=== PATIENT | male | born 1955 | race Caucasian/White ===

== ENCOUNTER 2022-08-22 11:53 | Outpatient (CLI) | payer OTHER, SELFPAY ==
[2022-08-22 12:59] LABS: Basophils Absolute Auto 0.1 K/mm3 (0.0-0.1); Basophils Percent Auto 0.8 % (0.2-1.2); Eosinophils Absolute Auto 0.3 K/mm3 (0-0.3); Eosinophils Percent Auto 4.5 % (0-4.4); Hematocrit 46.6 % (42.0-52.0); Hemoglobin 15.6 g/dL (14.0-18.0); Lymphocytes Absolute Auto 4.52 K/mm3 (0.9-3.2); Lymphocytes Percent Auto 60.4 % (18.3-44.2); Mean Corpuscular HGB Conc 33.5 g/dl (32-36); Mean Corpuscular Hemoglobin 34.5 pg (26-34); Mean Corpuscular Volume 103.1 fl (80-100); Mean Platelet Volume 10.7 fl (7.4-10.4); Monocytes Absolute Auto 0.8 K/mm3 (0.1-0.6); Monocytes Percent Auto 10.8 % (2.6-8.5); Neutrophils Absolute Auto 1.8 K/mm3 (1.3-6.7); Neutrophils Percent Auto 23.5 % (45.5-73.1); Platelet Count Result 246 k/mm3 (150-375); Red Blood Count 4.52 M/mm3 (4.6-6.20); Red Cell Distribution Width 12.7 % (11.5-14.5); White Blood Count 7.5 K/mm3 (4.5-10.0)
[2022-08-22 13:11] LABS: INR 1.2; Partial Thromboplastin Time 30.8 SECONDS (22.3-36.8); Prothrombin Time 14.4 Seconds (11.1-14.7)
[2022-08-22 13:15] LABS: Albumin Level 4.2 g/dL (3.5-5.1); Anion Gap 12 mmol/L (8-16); Blood Urea Nitrogen 14 mg/dL (9-20); Calcium 9.3 mg/dL (8.4-10.2); Carbon Dioxide 29 mmol/L (22-30); Chloride 100 mmol/L (98-107); Estimated Glomerular Filt Rate > 60; Glucose 99 mg/dL (65-110); Potassium 3.9 mmol/L (3.4-5.0); Sodium 141 mmol/L (137-145)
[2022-08-22 13:25] LABS: Urine Cotinine NEGATIVE
[2022-08-22 13:33] LABS: Hemoglobin A1C 6.2 % (<5.7)
[2022-08-22 13:37] LABS: Appearance Urine Clear (Clear); Bilirubin Urine Negative (Negative); Blood Urine Negative (Negative); Color Urine Yellow (Yellow); Glucose Urine UA Negative (Negative); Ketones Urine Negative (Negative); Leukocyte Esterase Ur Negative LEU/UL (Negative); Nitrate Urine Negative (Negative); Protein Urine Negative (Negative); Specific Grav Ur 1.015 (1.001-1.035); Urobilinogen Urine 0.2 mg/dL (<2.0)
[2022-08-22 13:42] LABS: Add Urine Microscopic? NO
== END 2022-08-22 11:54 | disposition home or self-care (01) ==
LOC: ANHSURGERY 12:01
PROVIDERS: PCP Physician Assistant Medical; Visit Provider Orthopaedic Surgery
DX: M17.11 Unilateral primary osteoarthritis, right knee (principal); Z01.818 Encounter for other preprocedural examination
CPT/HCPCS: 80048; 80307; 81003; 82040; 83036; 85025; 85610; 85730; 86850; 86900; 86901; 87081

== ENCOUNTER 2022-09-03 00:26 | Day surgery (SDC) | payer OTHER, SELFPAY ==
--- NOTE | 2022-08-22 11:41 | PC.NURSE ---
PRE-OP INSTRUCTIONS, PLEASE READ CAREFULLY Report to the Outpatient Waiting Room, entrance under the green pavilion located off [facility], at time _0900_ on date _09/03/22_. OR Time: _1100_. PACK A SMALL OVERNIGHT BAG AND LEAVE IN THE CAR ALONG WITH YOUR WALKER Time changes happen often and if your time is changed the preop area will call you the afternoon before. - You and your visitor will be asked to self-screen and do not enter if you have any COVID symptoms. - We encourage only one visitor and NO visitors under age 16 are allowed at this time. Your visitor will receive communication by the phone number that is given day of service. - The patient visitor is requested to social distance or may leave the building when not with patient due to restrictions. - A mask is required within the hospital. - VISITING HOURS 8AM-8PM Patients may have clear liquids (water, carbonated beverages, clear teas, apple juice) until 3 hours prior to surgery (0800 AM) with a maximum of 20 ounces. - No food from midnight until time of surgery Take the following medications with a SIP of water the morning of surgery: _METOPROLOL_ Medications to discontinue _ASPIRIN PER DR. SHORE'S INSTRUCTIONS_ Medications to discontinue per ANESTHESIA - _MULTIVITAMIN Date to take last dose 08/30/22__ Please no make-up, nail bengali, hairspray, perfume, deodorant, or body powder the day of surgery. No jewelry (including any body piercings) or valuables the day of surgery, leave them at home. Please take a shower or bath the night before, or the morning of, surgery with an antibacterial soap. Wear comfortable, loose fitting clothing. - Jewelry must be removed prior to entering the operating room. Rings and piercings that are not removed may be cut off. - The hospital will not accept responsibility for valuables. - Please leave all valuables, including medications, at home the day of surgery. If you are going home after surgery, a licensed spike driver must drive you home. - NO public transportation without another adult. - We recommend that an adult stay with you for 24 hours following discharge. - We also recommend that you do not drive, make important decision, drink alcoholic beverages, or take any drugs that were not prescribed by your health care provider for at least 24 hours after your discharge time. Follow any additional instructions given to you from your surgeon. If you or anyone in your household have experienced Covid symptoms in the past week, please notify your surgeon or the nurse liaison at the phone number below for possible testing. Instructions given to _PT_and asked if any additional questions and then verbalized understanding. Patient advised to call surgeon office or pre surgery nurse liaison [phone] if any additional questions.
[2022-08-22 12:18] VITALS: BP 150/86; PULSE 52; RESP 20; TEMP 36.5; O2SAT 99; BMI 38.4
[2022-09-03] VITALS (13 sets, daily range): BP systolic 108–175; BP diastolic 62–94; PULSE 51–87; RESP 16–22; TEMP 36.3–36.8; O2SAT 92–100
--- NOTE | ~2022-09-03 | XR_ITS ---
EXAMINATION: XR knee RT 2V DATE: 09/03/2022 14:55 INDICATION: Postoperative evaluation following right total knee arthroplasty. TECHNIQUE: Anteroposterior and lateral views of the right knee were obtained. COMPARISON: None. FINDINGS: Right total knee arthroplasty without patellar resurfacing appears well seated and in near anatomic a lignment. No fractures identified. Skin madan and expected postoperative subcutaneous, intramedul mark and intra-articular gas. IMPRESSION: 1. Right total knee arthroplasty, negative for postoperative purposes. Reviewed, dictated and finalized at location A.
--- NOTE | 2022-09-03 07:21 | ECG_ITS ---
Measurements Intervals [place] Rate: 53 P: 7 AR: 205 QRS: -35 QRSD: 107 T: 66 QT: 416 QTc: 392 Interpretive Statements SINUS BRADYCARDIA MARKED LEFT AXIS DEVIATION [QRS AXIS < -30] LEFT VENTRICULAR HYPERTROPHY AND ST-T CHANGE [VOLTAGE CRITERIA PLUS ST/T ABNORMALITY] ABNORMAL ECG NO PREVIOUS ECG AVAILABLE FOR COMPARISON Electronically Signed On 09-03-2022 10:22:46 CDT by Tadeo Boone M.D.
--- NOTE | 2022-09-03 07:26 | WPDHPUPDATE1 ---
History and Physical Update Update Date/Time: 09/03/22 07:26 History and Physical has been reviewed, including an updated exam of the patient. There are NO changes in the patient's condition. Risks, benefits, and alternatives have been discussed and questions answered. Patient agrees to proceed with procedure.
--- NOTE | 2022-09-03 07:27 | WPDHPUPDATE1 ---
History and Physical Update Update Date/Time: 09/03/22 07:27 History and Physical has been reviewed, including an updated exam of the patient. There are NO changes in the patient's condition. Risks, benefits, and alternatives have been discussed and questions answered. Patient agrees to proceed with procedure.
--- NOTE | 2022-09-03 08:01 | P.PNAN_ITS ---
Anes - Initial Pre Proc Eval Procedure: Operation Date: 09/03/22 11:00 Proposed Procedures p Right Total Knee Arthroplasty - Hossein Rangel MD Date/Time: 09/03/22 08:01 Surgeon: Hossein Rangel MD Pre Op Diagnosis: right knee djd Patient Data Age: 66 Gender: M Height: 1.83 m Weight: 128.4 kg Last Vital Signs Temp 36.5 C 08/22/22 12:18 Pulse 52 L 08/22/22 12:18 Resp 20 08/22/22 12:18 BP 150/86 H 08/22/22 12:18 Pulse Ox 99 08/22/22 12:18 O2 Del Method Room Air 08/22/22 12:18 Allergies Allergy/AdvReac Type Severity Reaction Status Date / Time No Known Allergies Allergy Mild Verified 09/03/22 09:14 Home Medications Medication Instructions Recorded Confirmed Type aspirin 81 mg capsule 81 mg PO DAILY 08/04/22 09/03/22 History mecobalamin (vitamin B12) [B12 1,000 mg PO QAM 08/05/22 09/03/22 History Active] multivitamin 1 tablet PO DAILY 08/05/22 09/03/22 History pantoprazole 40 mg tablet,delayed 40 mg PO QAM 08/21/22 09/03/22 History release potassium citrate 90 mg PO DAILY 08/21/22 09/03/22 History simvastatin 80 mg tablet 80 mg HS 08/22/22 09/03/22 History metoprolol tartrate 50 mg tablet 50 mg PO BID #180 tabs 08/26/22 09/03/22 Rx Patient hx anesthesia problems: none Family hx anesthesia problems: none Results Review: All pre-operative results and documents have been reviewed as part of the pre- operative evaluation. [facility] Past Medical History Medical History (Updated 09/03/22 @ 08:03 by Yared Haile DO) Atrial fibrillation CAD (coronary artery disease) History of ulcer disease Hyperlipidemia Hypertension Surgical History Surgical History (Updated 09/03/22 @ 08:03 by Yared Haile DO) History of carotid endarterectomy left History of open heart surgery Hx of CABG x3, 2010 Social History Social History (Updated 08/21/22 @ 10:43 by Marina Clark MA) Smoking packs per day: 1 Smoking cigarettes per day: 20.0 Years smoked: 30 Smoking pack-years: 30.00 Smoking status: Former smoker Tobacco type: cigarettes Second hand tobacco smoke exposure: No Additional smoking assessment comments: QUIT 2010 - PT DENIES ALL FORMS OF TOBACCO USE Alcohol intake: current Drinks per week: 6 Substance use: never Substance use type: marijuana Other substance usage details: QUIT AGE 34 Living arrangements: with family Gender identity (if verbalized by the patient): Male Spiritual care concerns: No Anes - Eval Final PreProcedure Day of Procedure 09/03/22 08:01 Patient weight: obese Heart: regular rate and rhythm Lungs: clear to auscultation Airway: Mallampati scale class 1 Neurological: alert and oriented Last oral intake: >/= 8 hours ASA classification: III Emergent: no Anesthetic plan: proceed Anesthesia type and monitoring: general LMA and standard monitoring Results Review: All pre-operative results and documents have been reviewed as part of the pre- operative evaluation. Informed Consent: The patient's anesthetic plan and its attendant risks and benefits were discussed with the patient/family/POA. Questions were solicited and answers provided to the satisfaction of the niles
--- NOTE | 2022-09-03 08:03 | WPDANESPNB ---
Anes - Peripheral Nerve Block Date/Time: 09/03/22 08:03 I have discussed with the patient/family/POA the placement of a peripheral nerve block for post-operative pain management, including associated risks, benefits, complications, and side effects. Alternative methods of post-operative analgesia were detailed. Questions were solicited and answers provided to the satisfaction of the patient/family/POA. Time-Out: A pre-procedural Time-Out was completed immediately before starting the procedure and confirmed: Patient Identification, Site, Procedure, Patient Position and the Availability of Requisite Equipment. Clinical Indications: Acute post-operative pain management requested by the operative surgeon. Nerve Block Insertion Note Anes-nerve block: adductor canal right Patient position: supine Skin prep: chlorhexidine Needle: 22 gauge, stimulating, insulated echogenic needle. Needle length: 80 mm Technique: ultrasound Injectate: bupivacaine 0.5% with epi 5 mcg/ml (30cc - no epi) Observations: tolerated well Complications: none Procedure start time:: 1118 Procedure end time:: 112
[2022-09-03] MEDS: LACTATED RINGERS 1,000 ML 30 ML IV CONT ×2 (09:45→14:38)
[2022-09-03] MEDS: ACETAMINOPHEN 500 MG TABLET 1000 MG PO (09:45)
[2022-09-03] MEDS: TRANEXAMIC ACID 1,000MG/ISO100 1,000 MG/100 ML BAG 200 MG IVPB (11:00)
[2022-09-03] MEDS: ceFAZolin 3 GM/D5W 100 ML 100 ML IVPB (11:34)
[2022-09-03] MEDS: TRANEXAMIC ACID 1,000 MG/10 ML AMPUL 1000 MG IV PUSH (13:47)
[2022-09-03] MEDS: fentaNYL CITRATE INJ (*CRX) 100 MCG/2 ML VIAL 25 MCG IV PUSH ×8 (14:55→16:00)
--- NOTE | 2022-09-03 15:14 | W.PM.PROC2 ---
Procedure Note - Detailed Date of Procedure 09/03/22 Pre-op Diagnosis right knee djd Post-op Diagnosis Same Procedure Performed R TKA Surgeon Hossein Rangel MD Anesthesia General Description of Procedure THE RIGHT KNEE WAS PREPPED AND DRAPED IN THE STERILE FASHION. THERE WAS A 10 DEGREE FLEXION CONTRACTURE. A MIDLINE SKIN INCISION WAS MADE. A MEDIAL PARAPATELLAR ARTHROTOMY WAS MADE. THE PATELLA WAS EVERTED. THERE WAS TRICOMPARTMENT DJD. THERE WAS MINIMAL PATELLA DJD. AN INTRAMEDULLARY KAMILLE WAS PLACED IN THE FEMUR. A DISTAL FEMORAL CUT WAS MADE IN 5 DEGREES OF VALGUS REMOVING APPROXIMATELY 10 MM OF BONE FROM THE DISTAL FEMUR. THE FEMUR WAS SIZED TO 70. A 70 FEMORAL CUTTING BLOCK WAS PLACED IN 3 DEGREES OF EXTERNAL ROTATION AND IN ALIGNMENT WITH SEVERIANO'S LINE AND THE TRANSEPICONDYLAR AXIS. ANTERIOR POSTERIOR AND CHAMFER CUTS WERE MADE. THE CUTS WERE EXCELLENT. NEXT AN INTRAMEDULLARY CUTTING GUIDE WAS PLACED IN THE TIBIA. A TRANS TIBIAL CUT WAS MADE ALONG THE LONG AXIS OF THE TIBIA. APPROXIMATELY 10 MM OF BONE WAS REMOVED FROM THE HIGH SIDE OF THE TIBIA. THE TIBIA WAS THEN PLANED TO A SMOOTH SURFACE. POSTERIOR FEMORAL OSTEOPHYTES WERE REMOVED FROM THE FEMORAL CONDYLES. A 79 TIBIAL TRIAL WAS PLACED IN ALIGNMENT WITH THE 1/3 MEDIAL ASPECT OF THE TIBIAL TUBERCLE. THEN A 70 FEMORAL TRIAL COMPONENT WAS PLACED. BOTH HAD EXCELLENT FITS. EVENTUALLY A 14 MM POLYETHYLENE TRIAL COMPONENT WAS PLACED. THE KNEE WAS TAKEN THROUGH A RANGE OF MOTION. THE KNEE CAME OUT TO FULL EXTENSION. THERE WAS NO ABNORMAL TILT TO THE PATELLA. THERE WAS GOOD A/P AND VARUS/VALGUS STABILITY. THERE WAS NO EXCESSIVE ROLL BACK WITH FLEXION. THE TRIAL COMPONENTS WERE REMOVED. THEN A 70 FEMORAL COMPONENT AND 79 TIBIAL COMPONENT WITH A 14 POLYETHYLENE COMPONENT WERE CEMENTED INTO PLACE. ONCE THE CEMENT WAS HARD THE KNEE WAS TAKEN THROUGH A ROM AGAIN AND FOUND TO BE STABLE WITH NO PATELLA TILT NO EXCESSIVE ROLL BACK WITH FLEXION AND GOOD STABILITY WITH COMPLETE AND FULL EXTENSION. THE KNEE WAS IRRIGATED WITH STERILE BETADINE AND WATER FOR ABOUT 3 MINUTES. THE BLEEDERS WERE CAUTERIZED. THE ARTHROTOMY WAS REPAIRED WITH NUMBER 1 VICRYL. THE SUB CUTANEOUS LAYER WITH 2-0 VICRYL AND THE SKIN WITH DIAMOND. THE WOUND WAS WASHED AND A STERILE DRESSING WAS APPLIED. PATIENT WAS EXTUBATED. Estimated Blood Loss -300.0 Pathology None sent Complications No immediate complications Condition Stable Disposition PACU
--- NOTE | 2022-09-03 16:20 | ADMGEN ---
This patient, Irving Garcia, was admitted to Medical Room 343-01. Patient/family oriented to hospital policies and general routines including ID bracelet, bed and alarms, visiting hours, pain management, procedures, bathroom and other care routines, personal items, smoking policy, room service/diet, and visiting hours. Information on how to activate the Rapid Response Team has been discussed. Patient/Family are encouraged to report perceived risks to care and to ask questions if they do not understand what they are told or what they should do.
[2022-09-03] MEDS: SODIUM CHLORIDE 0.9% IV 1,000 ML 125 ML IV CONT (16:56)
[2022-09-03] MEDS: SENNA/DOCUSATE SODIUM TABLET 2 TAB PO (17:34)
[2022-09-03] MEDS: KETOROLAC 15 MG/ML VIAL (*BKC) IV PUSH ×2 (17:35→23:37)
[2022-09-03] MEDS: ceFAZolin 2 GM/D5W 50 ML 2 GM/50 ML BAG IVPB (18:11)
[2022-09-03] MEDS: oxyCODONE/ACETAMINOPHEN (*CRX) 5-325 MG TABLET 2 TABLET PO (19:58)
[2022-09-03] MEDS: SIMVASTATIN 20 MG TABLET 80 MG BY MOUTH (19:59)
[2022-09-03] MEDS: ASPIRIN 325 MG ENTERIC TABLET PO (20:00)
[2022-09-03] MEDS: METOPROLOL TARTRATE 50 MG TAB PO (20:00)
[2022-09-04 01:51] VITALS: BP 145/66; PULSE 61; RESP 16; TEMP 36.7; O2SAT 96
[2022-09-04] MEDS: ceFAZolin 2 GM/D5W 50 ML 2 GM/50 ML BAG IVPB ×2 (03:05→10:21)
[2022-09-04] MEDS: KETOROLAC 15 MG/ML VIAL (*BKC) IV PUSH (05:28)
[2022-09-04 05:45] VITALS: BP 141/71; PULSE 60; RESP 16; TEMP 36.7; O2SAT 97
[2022-09-04 05:48] LABS: Basophils Percent Auto 0.2 % (0.2-1.2); Hematocrit 40.2 % (42.0-52.0); Hemoglobin 13.6 g/dL (14.0-18.0); Immature Granulocyte Absolute 0.05 K/mm3 (0.00-0.031); Immature Granulocyte Percent A 0.3 % (0-0.5); Lymphocytes Absolute Auto 3.12 K/mm3 (0.9-3.2); Lymphocytes Percent Auto 20.1 % (18.3-44.2); Mean Corpuscular HGB Conc 33.8 g/dl (32-36); Mean Corpuscular Volume 100.5 fl (80-100); Monocytes Absolute Auto 1.4 K/mm3 (0.1-0.6); Neutrophils Absolute Auto 10.9 K/mm3 (1.3-6.7); Neutrophils Percent Auto 70.4 % (45.5-73.1); Platelet Count Result 217 k/mm3 (150-375); Red Cell Distribution Width 12.6 % (11.5-14.5); White Blood Count 15.5 K/mm3 (4.5-10.0)
[2022-09-04 06:03] LABS: Anion Gap 11 mmol/L (8-16); Blood Urea Nitrogen 21 mg/dL (9-20); Calcium 8.5 mg/dL (8.4-10.2); Carbon Dioxide 24 mmol/L (22-30); Chloride 105 mmol/L (98-107); Estimated CRCL calculation 96 ml/min; Estimated Glomerular Filt Rate > 60; Glucose 125 mg/dL (65-110); Potassium 4.1 mmol/L (3.4-5.0); Sodium 140 mmol/L (137-145)
--- NOTE | 2022-09-04 07:55 | P.PNAN_ITS ---
Anes - Prog Note Post-Op Date/Time: 09/04/22 07:55 Cardiovascular status: normal Respiratory status: normal Airway patency: baseline Mental status: baseline Post-Op hydration status: normal Vital Signs: Last Vital Signs Temp 36.7 C 09/04/22 05:45 Pulse 60 09/04/22 05:45 Resp 16 09/04/22 05:45 BP 141/71 H 09/04/22 05:45 Pulse Ox 97 09/04/22 05:45 O2 Del Method Room Air 09/03/22 20:00 O2 Flow Rate 2 09/03/22 15:55 Pain Score (VAS): 3 I/O: Intake & Output 09/03/22 09/03/22 09/04/22 15:59 23:59 07:59 Intake Total 0 350 50 Output Total 0 Balance 0 350 50 Laboratory Tests 09/04/22 05:30 09/04/22 05:30 09/04/22 09/04/22 05:30 05:30 WBC 15.5 H RBC 4.00 L Hgb 13.6 L Hct 40.2 L MCV 100.5 H MCH 34.0 MCHC 33.8 RDW 12.6 Plt Count 217 MPV 11.0 H Immature Gran % (Auto) 0.3 Neut % (Auto) 70.4 Lymph % (Auto) 20.1 [place] % (Auto) 9.0 H Eos % (Auto) 0.0 Baso % (Auto) 0.2 Lymph # (Auto) 3.12 [place] # (Auto) 1.4 H Eos # (Auto) 0.0 Baso # (Auto) 0.0 Abs Immat Gran (auto) 0.05 H Absolute Neuts (auto) 10.9 H Absolute Nucleated RBC 0.0 Nucleated RBC % 0.0 Sodium 140 Potassium 4.1 Chloride 105 Carbon Dioxide 24 Anion Gap 11 BUN 21 H Creatinine 0.90 Estim Creat Clear Calc 96 Estimated GFR > 60 Glucose 125 H Calcium 8.5 Post-procedural complaints: none Patient Feedback: Patient satisfied with anesthetic care.
[2022-09-04] MEDS: oxyCODONE/ACETAMINOPHEN (*CRX) 5-325 MG TABLET 2 TABLET PO (07:56)
[2022-09-04] MEDS: ASPIRIN 325 MG ENTERIC TABLET PO (08:36)
[2022-09-04] MEDS: CYANOCOBALAMIN 1,000 MCG TABLET 1000 MCG PO (08:36)
[2022-09-04 08:37] VITALS: PULSE 70
[2022-09-04] MEDS: MULTIVITAMINS THERAPEUTIC TAB (*BKC) 1 TABLET PO (08:37)
[2022-09-04] MEDS: PANTOPRAZOLE 40 MG TABLET PO (08:37)
[2022-09-04] MEDS: METOPROLOL TARTRATE 50 MG TAB PO (08:37)
--- NOTE | 2022-09-04 09:31 | PM.PNORT ---
Progress Note: A&P Assessment and Plan (1) S/P total knee arthroplasty: Qualifiers: Laterality: right Qualified Code(s): Z96.651 - Presence of right artificial knee joint Code(s): Z96.659 - Presence of unspecified artificial knee joint Status: Acute Assessment and Plan: POD #1 : Right TKA Continue PT/OT. WBAT. Walker. HIGH FALL RISK. Continue pain control. Ice Knee. Protect skin. DVT prophylaxis with Aspirin. SCDs. Incentive Spirometry Use reviewed. Monitor Dressing. Change prior to discharge. Bowel Regimen. Dispo: Home with Home Health pending progress with PT/OT, likely today. Subjective Subjective Date/Time Seen: 09/04/22 09:31 Post Op day: 1 (Right Knee DJD ) Interval history: POD #1: Right TKA Patient doing very well. Pain well controlled. No new concerns. Hopeful for discharge home today. Review of Systems Review of Systems: All systems reviewed & are unremarkable except as noted in HPI and below Constitutional: Constitutional: Denies fever(s) and Denies headache(s) ENT: Denies headache(s) Cardiovascular: Cardiovascular: Denies chest pain, Denies diaphoresis, Denies palpitations and Denies dyspnea Respiratory: Respiratory: Denies dyspnea Gastrointestinal: Gastrointestinal: Denies abdominal pain, Denies constipation, Denies nausea and Denies vomiting Genitourinary: Genitourinary: Denies dysuria and Reports nocturia Musculoskeletal: Musculoskeletal: Reports arthralgias (Right Knee ) and Reports joint swelling (Right Knee ) Neurologic: Denies headache(s) Endocrine: Endocrine: Denies palpitations Exam Const: General: comfortable and no acute distress Resp: Effort & Inspection: normal respiratory effort Cardio: Rate: regular rate Rhythm: regular rhythm GI: GI Palp: Yes Soft to palpation, No Tenderness to palpation present (GI) and No Guarding due to palpation present (GI) Skin: General skin exam: wounds noted Wounds: wounds noted Other: Incision c/d/i. No surrounding redness/warmth. No hematoma. Mild ecchymosis. No wound dehiscence Neuro: Cognition (Neuro): normal cognition Other: NV intact aside from block. Moves toes. Sensation intact to light touch. +ankle dorsiflexion/plantarflexion. Extrem: Right lower extremity: normal to inspection, knee Details: tenderness (diffuse, mild ) Location: of the patella, swelling (diffuse, consistent with surgical intervention ), abnormal ROM Details: pain with active ROM during, pain with passive ROM during and with range as follows (limited due to recent surgical intervention ); able to extend lower leg actively and ecchymosis (mild ), lower leg (Negative Phillip's Sign ) Details: normal to inspection; no erythema and no tenderness, ankle (+ankle dorsiflexion/plantarflexion ) Details: normal to inspection, no edema and normal ROM; no tenderness, no swelling and no ecchymosis and foot Details: normal capillary refill, normal to inspection, vascular exam Details: dorsalis pedis pulse present and motor-sensory exam Details: light-touch normal; no tenderness Left lower extremity: normal to inspection Psych: Mental Status: mental status grossly normal Objective Data Vital Signs Vital Signs: Vital Signs - 24 hr 09/03/22 11:14 09/03/22 14:38 09/03/22 14:55 Temperature 36.3 C L 36.8 C Pulse Rate 51 L 68 69 Respiratory Rate 16 22 H Blood Pressure 170/94 H 108/62 127/72 Pulse Oximetry 100 92 94 Oxygen Delivery Room Air Simple Face Mask Simple Face Mask Oxygen Flow Rate 6 6 09/03/22 15:10 09/03/22 15:15 09/03/22 15:25 Temperature Pulse Rate 75 78 Respiratory Rate 20 18 Blood Pressure 143/77 H 145/79 H Pulse Oximetry 96 93 Oxygen Delivery Simple Face Mask Nasal Cannula Nasal Cannula Oxygen Flow Rate 6 2 2 09/03/22 15:40 09/03/22 15:55 09/03/22 16:20 Temperature 36.7 C Pulse Rate 80 81 82 Respiratory Rate 16 16 16 Blood Pressure 129/82 143/85 H 158/87 H Pulse Oximetry 93 93 97 Oxygen
--- NOTE | 2022-09-04 11:32 | PM.DS ---
DS: Admitting Diagnosis Discharge Date 09/04/22 Admitting Diagnosis Right TKA DS: Discharge Diagnosis Discharge Diagnosis (1) S/P total knee arthroplasty: Qualifiers: Laterality: right Qualified Code(s): Z96.651 - Presence of right artificial knee joint Code(s): Z96.659 - Presence of unspecified artificial knee joint Status: Acute Assessment and Plan: POD #1 : Right TKA Continue PT/OT. WBAT. Walker. HIGH FALL RISK. Continue pain control. Ice Knee. Protect skin. DVT prophylaxis with Aspirin. SCDs. Incentive Spirometry Use reviewed. Monitor Dressing. Change prior to discharge. Bowel Regimen. Dispo: Home with Home Health pending progress with PT/OT, likely today. DS: Summary Hospital Course Reason for hospitalization: Right TKA Hospital Course: 66 year old male admitted s/p Right TKA for postoperative medical management, paint control and mobilization with PT/OT. Patient progressed well with PT/OT. Pain and vitals stable throughout. Patient has been cleared to be discharged home with home health at this time. Follow up planned for 3 weeks in the outpatient orthopedic clinic with Dr. Rangel. Status at Discharge Functional status at discharge: uses cane/walker Overall status at discharge: patient is progressing back to baseline Time Spent with Patient Time attestation: Total time spent providing and/or coordinating discharge services: Exam Const: General: comfortable and no acute distress Resp: Effort & Inspection: normal respiratory effort Cardio: Rate: regular rate Rhythm: regular rhythm Skin: General skin exam: wounds noted Wounds: wounds noted Other: Incision c/d/i. No surrounding redness/warmth. No hematoma. Mild ecchymosis. No wound dehiscence Neuro: Cognition (Neuro): normal cognition Other: NV intact aside from block. Moves toes. Sensation intact to light touch. +ankle dorsiflexion/plantarflexion. Extrem: Right lower extremity: normal to inspection, knee Details: tenderness (diffuse, mild ) Location: of the patella, swelling (diffuse, consistent with surgical intervention ), abnormal ROM Details: pain with active ROM during, pain with passive ROM during and with range as follows (limited due to recent surgical intervention ); able to extend lower leg actively and ecchymosis (mild ), lower leg (Negative Phillip's Sign ) Details: normal to inspection; no erythema and no tenderness, ankle (+ankle dorsiflexion/plantarflexion ) Details: normal to inspection, no edema and normal ROM; no tenderness, no swelling and no ecchymosis and foot Details: normal capillary refill, normal to inspection, vascular exam Details: dorsalis pedis pulse present and motor-sensory exam Details: light-touch normal; no tenderness Left lower extremity: normal to inspection Psych: Mental Status: mental status grossly normal DS: Data Data Completed and Pending Labs on day of discharge: Labs from last 24 hours 09/04/22 09/04/22 05:30 05:30 WBC 15.5 H RBC 4.00 L Hgb 13.6 L Hct 40.2 L MCV 100.5 H MCH 34.0 MCHC 33.8 RDW 12.6 Plt Count 217 MPV 11.0 H Immature Gran % (Auto) 0.3 Neut % (Auto) 70.4 Lymph % (Auto) 20.1 [place] % (Auto) 9.0 H Eos % (Auto) 0.0 Baso % (Auto) 0.2 Lymph # (Auto) 3.12 [place] # (Auto) 1.4 H Eos # (Auto) 0.0 Baso # (Auto) 0.0 Abs Immat Gran (auto) 0.05 H Absolute Neuts (auto) 10.9 H Absolute Nucleated RBC 0.0 Nucleated RBC % 0.0 Sodium 140 Potassium 4.1 Chloride 105 Carbon Dioxide 24 Anion Gap 11 BUN 21 H Creatinine 0.90 Estim Creat Clear Calc 96 Estimated GFR > 60 Glucose 125 H Calcium 8.5 Discharge Plan Discharge Patient Disposition: Home Health Service Discharge Instructions: Post Op Total Knee Replacement Instructions Dr. Hossein Rangel [phone] Your dressing will be changed prior to your discharge. You will be sent home with one additional dressing to be changed on
== END 2022-09-04 12:40 | disposition home health service (06) ==
LOC: ANHSURGERY 08:47 → ANH3MED 16:09
PROVIDERS: PCP Physician Assistant Medical; Visit Provider Orthopaedic Surgery
PROC: (CPT 27447; principal; 2022-09-03 11:00)
DX: M17.11 Unilateral primary osteoarthritis, right knee (principal); G89.18 Other acute postprocedural pain; I48.91 Unspecified atrial fibrillation; I25.10 Atherosclerotic heart disease of native coronary artery without angina pectoris; I10 Essential (primary) hypertension; E78.5 Hyperlipidemia, unspecified; Z79.82 Long term (current) use of aspirin; Z95.1 Presence of aortocoronary bypass graft; Z87.891 Personal history of nicotine dependence; E66.9 Obesity, unspecified; Z68.37 Body mass index [BMI] 37.0-37.9, adult
CPT/HCPCS: 27447; 64447; 36415; 73560; 80048; 80307; 81003; 82040; 83036; 85025; 85610; 85730; 86850; 86900; 86901; 87081; 93005; 97110; 97161; 97165; A9270; C1713; C1776; J0171; J0690; J1100; J1885; J2250; J2270; J2405; J2704; J2795; J3010; J7030; J7120

== ENCOUNTER 2022-10-22 11:00 | Outpatient (RCR) | payer OTHER, SELFPAY ==
--- NOTE | 2022-10-02 16:45 | PTOPEVAL1 ---
Assessment and note entered by Ronit Jara, PT Evaluation Information Assessment Status Evaluation Diagnosis R TKA Onset 09/04/22 Subjective Information Pt reports that he recently started using the cane over this past week and he feels like he really needs it when standing up but as he is walking doesn't need it as much. He reports that his knee feels really sore when he first gets up in the morning or when getting up at night to go to the bathroom. He states that he feels like his progressed has leveled out over the last week. He reports that he still does not have feeling on the lateral aspect of his L R knee. He reports that he has sharp shooting pains at times but nothing that lasts. He also reports stiffness and soreness in his knee. Reported Pain Level Pain Score 3: Self Report Assessment PT Clinical Summary Irving was seen today for a PT evaluation s/p R TKA. He presents with decreased LE strength and ROM limiting his functional mobility. He currently uses a straight cane for ambulation and requires increased time to perform sit to stand transfer. He would benefit from skilled PT to address these deficits and assist him in improving his functional mobility and returning to his prior level of function. Plan of Care Interventions Electrical Stimulation,Gait Training,Manual Therapy,Neuro Re-education,Patient/Caregiver Educati,Therapeutic Activities,Therapeutic Exercise PT Services Indicated Yes Treatment Frequency and 2x/week for 4-6 weeks Duration These treatments will address the objective and functional deficits as defined above. The patient will be advanced safely and appropriately in order for the patient to progress towards his/her prior level of function. Additional exercises will be introduced and as well as a comprehensive home exercise program upon discharge, if needed, ?to ensure carryover of functional gains achieved in the clinic. This treatment plan has been reviewed and agreement upon by the patient.
--- NOTE | 2022-10-27 16:26 | PCPTNOTE ---
Patient called & cancelled scheduled appointment this date due to feeling ill.
--- NOTE | 2022-11-07 08:16 | PCPTNOTE ---
Patient called & cancelled scheduled appointment this date due to inclement weather
--- NOTE | 2022-11-13 11:03 | BUPTOPDC ---
Assessment and note entered by Sharri Coleman, PT Assessment Status Discharge - Pt Not Present Diagnosis R TKA Onset 09/04/22 Subjective Information Pt reports that he recently started using the cane over this past week and he feels like he really needs it when standing up but as he is walking doesn't need it as much. He reports that his knee feels really sore when he first gets up in the morning or when getting up at night to go to the bathroom. He states that he feels like his progressed has leveled out over the last week. He reports that he still does not have feeling on the lateral aspect of his L R knee. He reports that he has sharp shooting pains at times but nothing that lasts. He also reports stiffness and soreness in his knee. Assessment PT Clinical Summary Pt called and stated he is doing well. Reports due to insurance changes will not be continuing therapy at this time. Thus is being discharged from therapy services due to patient request. Plan of Care PT Services Indicated Discharge
== END 2022-11-13 11:37 | disposition home or self-care (01) ==
LOC: ANHHIPT 11:00
PROVIDERS: PCP Physician Assistant Medical; Visit Provider Orthopaedic Surgery
DX: Z47.1 Aftercare following joint replacement surgery (principal); Z96.651 Presence of right artificial knee joint
CPT/HCPCS: 97110; 97140; 97162

== ENCOUNTER 2023-05-21 10:24 | Outpatient (RCR) | payer OTHER, SELFPAY ==
--- NOTE | 2023-05-21 10:54 | PTOPEVAL1 ---
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 when got into car noted back pain and this is when the pain started Reported Pain Level Pain Score 0: Self Report Assessment PT Clinical Summary Pt reports increased discomfort in back beginning approximately a month ago whilst playing golf. Pt does have x-ray findings consistent with arthritis type deficit however until revently was not bothersome. He has been able to continue doing all his activities including golf without issue. However he reports the greatest discomfort is in the mornings with first waking. He sleeps on his stomach and reports this causes him to be stiff. He performs his on regiment of exercises to loosen up and has no pain for the remainder of the day. He does demo decresaed hip and core strength, decreased lumbar ROM, and decreased flexibility. However he reports he would prefer to attempt therapy independently initially. Thus pt was educated on positiong for bed, improved exercises, and plan of care. Pt would benefit from therapy up to 1-2x weekly x 4 weeks with emphasis on education. Plan of Care Interventions Electrical Stimulation,Hot Pack/Cold Pack,Manual Therapy,Neuro Re-education,Patient/Caregiver Educati,Therapeutic Activities,Therapeutic Exercise,Self-Care/Home Management,Ultrasound PT Services Indicated Yes Treatment Frequency and 1-2x weekly x 4 weeks Duration These treatments will address the objective and functional deficits as defined above. The patient will be advanced safely and appropriately in order for the patient to progress towards his/her prior level of function. Additional exercises will be introduced and as well as a comprehensive home exercise program upon discharge, if needed, ?to ensure carryover of functional gains achieved in the clinic. This treatment plan has been reviewed and agreement upon by the patient.
--- NOTE | 2023-05-21 10:55 | OPREHPOC ---
Outpatient Therapy Plan of Care This is a Multidisciplinary Plan of Care that may contain components documented by all disciplines (PT, OT, and ST.) PT Problem 1 PT Problem #1 Knowledge Deficit PT Goal 1 Goal Pt will be independent in HEP Target Visit 8 PT Problem 2 PT Problem #2 Pain PT Goal 1 Goal Pt will report worst pain at 2/10 Target Visit 8 PT Problem 3 PT Problem #3 Impaired Range of Motion PT Goal 1 Goal Pt will demo ROM of lumbar spine within 75% or normal ranges Target Visit 8 PT Problem 4 PT Problem #4 Impaired Strength PT Goal 1 Goal Pt will show strength of 4/5 in all tested areas. Target Visit 8
== END 2023-06-26 11:06 | disposition home or self-care (01) ==
LOC: ANHHIPT 10:24
PROVIDERS: PCP Physician Assistant Medical; Visit Provider Nurse Practitioner Family
DX: M54.9 Dorsalgia, unspecified (principal)
CPT/HCPCS: 97110; 97161

== ENCOUNTER 2024-02-29 04:54 | Day surgery (SDC) | payer OTHER, SELFPAY ==
[2024-02-24 12:53] VITALS: BMI 36.0
--- NOTE | 2024-02-24 13:14 | PC.NURSE ---
Report to the Outpatient Waiting Room, entrance under the green pavilion located off [facility], at time ___0700____ on date _02/29/24 . Planned Procedure Time: ___0900 . Time changes happen often and if your time is changed the preop area will call you the afternoon before. - You and your visitor will be asked to self-screen and do not enter if you have any COVID symptoms. - A mask is optional within the hospital at this time. Patients may have clear liquids (water, carbonated beverages, clear teas, apple juice) until 3 hours prior to surgery (0600 AM) with a maximum of 20 ounces. - No food from midnight until time of surgery - Infants may have breast milk until 4 hours before surgery, formula 6 hours prior to surgery. - Children will be allowed to drink immediately following surgery. If applicable, please bring a bottle or sippy cup to assist with drinking. Juice, water, soda, and popsicles are readily available. For infants on formula, please bring formula the day of surgery. Pacifiers are allowed. Take the following medications with a SIP of water the morning of surgery: ___METOPROLOL DO NOT STOP ANY OF YOUR OTHER PRESCRIPTION MEDICATIONS PRIOR TO SURGERY ?EXCEPT THE FOLLOWING Medications to discontinue per physician ___MULTIVITAMIN 3 DAYS PRIOR TO SURGERY,Date to take last dose 02/25/24___ Please no make-up, nail kyrgyz, hairspray, perfume, deodorant, or body powder the day of surgery. No jewelry (including any body piercings) or valuables the day of surgery, leave them at home. Please take a shower or bath the night before, or the morning of, surgery with an antibacterial soap. Wear comfortable, loose fitting clothing. Children are encouraged to wear pajamas. - Jewelry must be removed prior to entering the operating room. Rings and piercings that are not removed may be cut off. - The hospital will not accept responsibility for valuables. - Please leave all valuables, including medications, at home the day of surgery. If you are going home after surgery, a licensed bus driver/monitor must drive you home. - NO public transportation without another adult if you receive anesthesia. - We recommend that an adult stay with you for 24 hours following discharge. - We also recommend that you do not drive, make important decision, drink alcoholic beverages, or take any drugs that were not prescribed by your health care provider for at least 24 hours after your discharge time. For Pediatric surgeries, we recommend two adults accompany the child home. Follow any additional instructions given to you from your surgeon. If you or anyone in your household have experienced Covid symptoms in the past week, please notify your surgeon or the nurse liaison at the phone number below for possible testing. Telephone instructions given to ____PT and asked if any additional questions and then verbalized understanding. Patient advised to call surgeon office or pre surgery nurse liaison [phone] if any additional questions.
[2024-02-29] VITALS (13 sets, daily range): BP systolic 144–178; BP diastolic 61–94; PULSE 52–64; RESP 9–16; TEMP 36.5–36.6; O2SAT 93–100
[2024-02-29] MEDS: LACTATED RINGERS 1,000 ML 30 ML IV CONT ×2 (07:40→12:35)
[2024-02-29] MEDS: KETOROLAC 15 MG/ML VIAL (*BKC) IV PUSH (07:40)
[2024-02-29] MEDS: ACETAMINOPHEN 500 MG TABLET 1000 MG PO (07:40)
--- NOTE | 2024-02-29 07:55 | WPDANESEPPF ---
Anes - Initial Pre Proc Eval Procedure: Operation Date: 02/29/24 09:00 Proposed Procedures p Open Umbilical Hernia Repair, Possible Mesh - Sameer Menchaca MD s Open Bilateral Inguinal Hernia Repair with Mesh - Sameer Menchaca MD Date/Time: 02/29/24 07:55 Surgeon: Sameer Menchaca MD Pre Op Diagnosis: Reducible Umb Hernia, (2cm) David Ing Hernia Patient Data Age: 68 Gender: M Height: 1.83 m Weight: 119.5 kg Allergies Allergy/AdvReac Type Severity Reaction Status Date / Time No Known Allergies Allergy Mild Verified 02/24/24 12:50 Home Medications Medication Instructions Recorded Confirmed Type aspirin 81 mg capsule 81 mg PO DAILY 08/04/22 02/26/24 History mecobalamin (vitamin B12) [B12 1,000 mg PO QAM 08/05/22 02/26/24 History Active] multivitamin 1 tablet PO DAILY 08/05/22 02/26/24 History pantoprazole 40 mg tablet,delayed 40 mg PO QAM 08/21/22 02/26/24 History release potassium citrate 90 mg PO DAILY 08/21/22 02/26/24 History simvastatin 80 mg tablet 80 mg HS 08/22/22 02/26/24 History metoprolol tartrate 50 mg tablet 50 mg PO BID #180 tabs 08/26/22 02/26/24 Rx Patient hx anesthesia problems: none Family hx anesthesia problems: none Results Review: All pre-operative results and documents have been reviewed as part of the pre-operative evaluation. FORMERLY [facility] Past Medical History Medical History Atrial fibrillation CAD (coronary artery disease) Heart beat abnormality History of ulcer disease Hyperlipidemia Hypertension Surgical History Surgical History History of abdominal surgery total splenectomy History of carotid endarterectomy left History of open heart surgery History of splenectomy Hx of CABG x3, 2010 S/P total knee arthroplasty Rt TKA 09/03/22 Family History Family History Other Heart disease No family history of disorders Social History Social History Smoking packs per day: 1 Smoking cigarettes per day: 20.0 Years smoked: 30 Smoking pack-years: 30.00 Smoking status: Former smoker Tobacco type: cigarettes Second hand tobacco smoke exposure: No Smoking end date: 11/16/09 Additional smoking assessment comments: QUIT 2010 - PT DENIES ALL FORMS OF TOBACCO USE Alcohol intake: current Drinks per week: 6 Substance use: former Substance use type: marijuana Other substance usage details: QUIT AGE 34 Lack of Transportation: No Lack of Food: Never True Current Housing: I Have Housing Concerned About Future Housing: No Difficulty Paying Gas/Electric Bills: No Difficulty Paying for Meds: No Currently Unemployed: No Education: High School Diploma/GED Difficulty w/ Childcare or Family Care: No Living arrangements: with family Occupation/Education: retired Gender identity (if verbalized by the patient): Male Spiritual care concerns: No Anes - Eval Final PreProcedure Day of Procedure 02/29/24 07:55 Patient weight: obese Heart: regular rate and rhythm Lungs: clear to auscultation Airway: Mallampati scale class 1 and special considerations (Edentulous. ) Neurological: alert and oriented Last oral intake: >/= 8 hours ASA classification: III Emergent: no Anesthetic plan: proceed Anesthesia type and monitoring: general and standard monitoring Results Review: All pre-operative results and documents have been reviewed as part of the pre-operative evaluation. Clearance letter of optimization from feather separator Dr Seaman. Informed Consent: The patient's anesthetic plan and its attendant risks and benefits were discussed with the patient/family/POA. Questions were solicited and answers provided to the satisfaction of the patient/family/POA.
--- NOTE | 2024-02-29 08:58 | WPDHPUPDATE1 ---
History and Physical Update Update Date/Time: 02/29/24 08:58 History and Physical has been reviewed, including an updated exam of the patient. There are NO changes in the patient's condition. Risks, benefits, and alternatives have been discussed and questions answered. Patient agrees to proceed with procedure.
[2024-02-29] MEDS: ceFAZolin 2 GM/D5W 50 ML 2 GM/50 ML BAG IVPB (09:10)
[2024-02-29] MEDS: LIDO 1%/EPINEPHRINE 1:100,000 50 ML VIAL 10 ML INFILTRATE (09:50)
[2024-02-29] MEDS: BUPivacaine HCL 0.5% 10 ML AMP INFILTRATE (09:51)
--- NOTE | 2024-02-29 12:57 | PM.OP ---
Procedure Note - Brief Procedure Note - Brief Date of procedure: 02/29/24 Reducible Umb Hernia, (2cm) David Ing Hernia Post-op diagnosis: Same Procedure performed: Open reducible bilateral inguinal hernia repairs with UHS mesh, open reducible umbilical hernia repair without mesh Surgeon: Sameer Menchaca MD Anesthesia: GETA Implants: Ultrapro hernia system mesh (large) bilateral groin regions Estimated blood loss (mL): 20 Drains: No Packing: No Pathology: None sent Complications: No immediate complications Condition: Stable Disposition: PACU
[2024-02-29] MEDS: DICLOFENAC SODIUM 0.1% OPHTH SOLN 2.5 ML BOTTLE 1 DROP EACH EYE (13:29)
[2024-02-29] MEDS: ARTIFICIAL TEARS OPHTH SOLN 15 ML BOTTLE 1 DROP EACH EYE (13:29)
--- NOTE | 2024-02-29 13:30 | SUR.PHASEI ---
Dr. Huertas notified of patient's elevated BP. No new orders received. Patient also complaining of burning and pain to right eye. Dr. Huertas at bedside to assess patient, corneal abrasion protocol ordered.
[2024-02-29] MEDS: fentaNYL CITRATE INJ (*CRX) 100 MCG/2 ML VIAL 25 MCG IV PUSH ×4 (13:37→13:48)
[2024-02-29] MEDS: PROPARACAINE HCL 0.5% 15 ML OPHTH SOLN 1 DROP EACH EYE (14:28)
[2024-02-29] MEDS: oxyCODONE HCL (*CRX) 5 MG TAB IR PO (14:46)
--- NOTE | 2024-03-03 11:13 | W.PM.PROC2 ---
Procedure Note - Detailed Date of Procedure 02/29/24 Pre-op Diagnosis Reducible Umb Hernia, (2cm) David Ing Hernia Post-op Diagnosis Same Procedure Performed Open bilateral inguinal hernia repairs with Ultrapro hernia system mesh Open umbilical hernia repair without mesh Surgeon Sameer Menchaca MD Anesthesia General Indications patient is a 68-year-old gentleman presented with bilateral groin pain. CT scan abdomen pelvis showed bilateral inguinal hernias with fatty tissue within the hernia defect. He also has a reducible umbilical hernia which he would like to have repaired at the same time. He presents now for open bilateral inguinal hernia repair with mesh and open umbilical hernia repair without mesh. Findings Patient had a reducible umbilical hernia with a defect measuring approximately 2.5cm. The bilateral inguinal hernias were both indirect inguinal hernias with only fatty tissue coming through the internal ring. Umbilical hernia was repaired without mesh. and the bilateral inguinal hernias was repaired with large pieces of Ultrapro hernia system mesh. Description of Procedure After informed consent was obtained patient brought to the operating room was placed supine position then general LMA anesthesia was administered. The abdomen bilateral groin regions were then prepped draped usual sterile fashion. Time-out was then performed correctly identifying the patient as well as procedure to be performed. He was given perioperative IV antibiotics. First started by repairing the reducible umbilical hernia. A small curved incision was made just below umbilicus in the skin fold and dissection carried deeply down through the dermis skin with a scalpel. Electrocautery was then used to dissect down around the hernia sac and then I encircled the umbilical stalk blunt dissection with a Pauline clamp. I then utilized the cautery to disconnect the overlying dermis of the umbilicus from the hernia sac. The hernia sac had only a small amount of preperitoneal fat within it. I then dissected the hernia sac down to the fascial level. The hernia sac was discarded. The defect measured 2.5cm in diameter. I placed my finger into the abdomen through the defect and swept underneath the anterior abdominal wall. There were no adhesions of omentum or bowel around the hernia sac. I then proceeded to close the hernia defect primarily with the use of multiple interrupted 0 Ethibond sutures. The fascial edges approximated easily without any tension. There was irrigated sterile saline solution hemostasis was good. I then recreated inverted umbilicus by tacking down the dermis of the umbilicus to the deeper fascial structures. This is of 3-0 Vicryl suture. 2-0 Vicryl sutures then used to close the subcutaneous tissues in the incision. Interrupted 3-0 Vicryl sutures are placed a deep dermal fashion to further approximate the skin edges. The skin edges were then closed utilizing a running subcuticular 4 Monocryl suture. Incision was then cleaned and then skin glue was applied. I then approached repair of the left inguinal hernia 1st. A transverse incision was then made in the left groin region above the left pubic tubercle. Dissection carried down through the subcu tissues down through Genaro's fascia with electrocautery into the external oblique aponeurosis was encountered. I then identified the external ring and then incised the external oblique aponeurosis along the direction of it's fibers with a scalpel. Electrocautery was then used to open the aponeurosis out through the external ring. I then the external oblique aponeurosis from the underlying cremasteric and internal oblique muscle fibers. Utilizing electrocautery and blunt finger dissection. I then circled the cord structures at the pubic tubercle and placed a Kayleen drain around the a with retraction. I further divided hemostatic muscle fibers to mobilize the cord on exam of the floor of the in
== END 2024-02-29 16:00 | disposition home or self-care (01) ==
PROVIDERS: PCP Physician Assistant Medical; Visit Provider Surgery
PROC: (CPT 49505; principal; 2024-02-29 09:00)
PROC: (CPT 49505; 2024-02-29 09:00)
DX: K40.20 Bilateral inguinal hernia, without obstruction or gangrene, not specified as recurrent (principal); K42.9 Umbilical hernia without obstruction or gangrene; I10 Essential (primary) hypertension; E78.5 Hyperlipidemia, unspecified; I48.91 Unspecified atrial fibrillation; I25.10 Atherosclerotic heart disease of native coronary artery without angina pectoris; F12.90 Cannabis use, unspecified, uncomplicated; E66.9 Obesity, unspecified; Z68.35 Body mass index [BMI] 35.0-35.9, adult; Z79.82 Long term (current) use of aspirin; Z98.890 Other specified postprocedural states; Z95.1 Presence of aortocoronary bypass graft; Z86.79 Personal history of other diseases of the circulatory system; Z87.891 Personal history of nicotine dependence
CPT/HCPCS: 49505; 49591; A9270; C1781; J0690; J1100; J1885; J2405; J2704; J3010; J7120

== ENCOUNTER 2025-07-05 07:48 | Outpatient (CLI) | payer OTHER, SELFPAY ==
--- NOTE | 2025-07-05 07:54 | ECG_ITS ---
Test Date: 2025-07-05 08:03:33 Measurements Intervals Sandy Rate: 57 P: 3 OR: 118 QRS: -31 QRSD: 110 T: 63 QT: 384 QTc: 377 Interpretive Statements SINUS BRADYCARDIA WITH SHORT OR INTERVAL WITH OCCASIONAL SUPRAVENTRICULAR PREMATURE COMPLEXES LEFT AXIS DEVIATION BORDERLINE R WAVE PROGRESSION, ANTERIOR LEADS MINIMAL Q WAVES- HIGH LATERAL LEADS BORDERLINE ST ABNORMALITY- HIGH LATERAL LEADS BASELINE ARTIFACT- I, II, III, AVR, AVL ,AVF, V1-V6 BORDERLINE ECG No previous ECG available for comparison Electronically Signed On 07-05-2025 08:12:16 CDT by Gato Mitchell D.O.
--- OUTSIDE RECORDS SUMMARY | 2025-07-05 07:56 | XMS_ITS | Encounter Summary ---
Author Organization [facility] Address [address] [place] [id number] Care Team Providers Care Perinatal Nurse Name Role Phone Maria A Tavares PA-C Primary Care Provider [phone] Glenn Seaman MD Unavailable [phone] Encounter Details Date Type Department Care Team (Latest Contact Info) Description 03/16/2023 Elite Form Message [facility] Provider Disputed Review Completed Social History Tobacco Use Types Packs/Day Years Used Date Smoking Tobacco: Former Smokeless Tobacco: Never Comments:quit 2009 Alcohol Use Standard Drinks/Week Comments Yes 13.3 (1 standard drink = 0.6 oz pure alcohol) PHQ-2 Answer Date Recorded Patient Health Questionnaire-2 Score 0 12/19/2022 Sex and Gender Information Value Date Recorded Sex Assigned at Male 01/27/2025 11:37 AM CDT Legal Sex Male 5:08 PM CDT Gender Identity Not on file Sexual Orientation Not on file Occupation Industry Job Start Date Job End Date [employer] Not on file Not on file Not on file COVID-19 Exposure Response Date Recorded In the last 10 days, have yo u been in contact with someone who was confirmed or suspected to have Coronavirus/COVID-19? No / Unsure 03/18/2023 8:41 AM CDT documented as of this encounter Functional Status * RETIRED Are you deaf or do you have serious difficulty hearing Answer Date of Assessment Author Status No 05/11/2021 5:25 AM CDT Activ e * RETIRED Are you blind or do you have serious difficulty seeing, even when wearing glasses? Answer Date of Assessment Author Status No 05/11/2021 5:25 AM CDT Activ e * Do you have serious difficulty walking or climbing stairs? Answer Date of Assessment Author Status Yes 05/11/2021 5:25 AM CDT Iman Massey RN Active * Do you have difficulty dressing or bathing? Answer Date of Assessment Author Status No 05/11/2021 5:25 AM CDT Iman Massey RN Active * Because of a physical, mental, or emotional condition, do you have difficulty doing errands alone such as visiting a doctor's office or shopping? Answer Date of Assessment Author Status No 05/11/2021 5:25 AM CDT Iman Massey RN Active documented as of this encounter Mental Status * Because of a physical, mental, or emotional condition, do you have serious difficulty concentrating, remembering, or making decisions? Answer Entry Date Author Status No 05/11/2021 5:25 AM CDT Iman Massey RN Active documented in this encounter Plan of Treatment Upcoming Encounters Date Type Department Care Team (Late st Contact Info) Description 08/14/2025 10:30 AM CDT Office Visit [facility] [id number] [place] [phone] Glenn Seaman MD [facility]. [facility] [address] [place] [address] documented as of this encounter Visit Diagnoses Not on filedocumented in this encounter Care Teams Perinatal Nurse Relationship Specialty Start Date End Date Maria A Tavares PA-C PCP - General NURSE PRACTITIONER 04/16/16 Glenn Seaman MD [facility]. [facility] [address] [place] [address] [facility] [employer] CARDIOVASCULAR DISEASE 04/16/16 documented as of this encounter
--- OUTSIDE RECORDS SUMMARY | 2025-07-05 07:56 | XMS_ITS | Encounter Summary ---
Author Organization [facility] Address [address] [place] [address] Care Team Providers Care Front Tender Name Role Phone Maria A Tavares PA-C Primary Care Provider +1- [phone] Glenn Seaman MD Unavailable [phone] Encounter Details Date Type Department Care Team (Late st Contact Info) Description 03/17/2022 [employer] Message Enc [place] [facility], [address] [address] Alexandra, [facility] Provider medication information Social History Tobacco Use Types Packs/Day Years Used Date Smoking Tobacco: Former Smokeless Tobacco: Never Comments:quit 2009 Alcohol Use Standard Drinks/Week Comments Yes 13.3 (1 standard drink = 0.6 oz pure alcohol) Sex and Gender Information Value Date Recorded Sex Assigned at Male 01/27/2025 11:37 AM CDT Legal Sex Male 5:08 PM CDT Gender Identity Not on file Sexual Orientation Not on file 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 Unable to assess 03/10/2022 2:44 PM CDT documented as of this encounter Functional [...] Description 08/14/2025 10:30 AM CDT Office Visit [place] [facility] [id number] [place] [phone] Glenn Seaman MD [facility]. [address] [address] documented as of this encounter Visit Diagnoses Not on filedocumented in this encounter Care Teams Front Tender Relationship Specialty Start Date End Date Maria A Tavares PA-C PCP - General NURSE PRACTITIONER 04/16/16 Glenn Seaman MD [facility]. [facility] [address] [place], [place] [address] [place] Senior Integration Developer CARDIOVASCULAR DISEASE 04/16/16 documented as of this encounter
--- OUTSIDE RECORDS SUMMARY | 2025-07-05 07:56 | XMS_ITS | Encounter Summary ---
Author Organization [facility] Address [facility] [place] [address] Care Team Providers Care Automatic Spooler Operator Name Role Phone Maria A Tavares PA-C Primary Care Provider [phone]- [phone] Glenn Seaman MD Unavailable [phone] Encounter Details Date Type Department Care Team (Late st Contact Info) Description 11/04/2022 Kids Movie Message Enc [place] [facility] [facility], [address] [address] Alexandra, [facility] Provider CT of chest Social History Tobacco Use Types Packs/Day Years [...] suspected to have Coronavirus/COVID-19? No / Unsure 10/31/2022 10:19 AM DRILL PRESS SET UP OPERATOR RADIAL documented as of this encounter Functional Status [...] Description 08/14/2025 10:30 AM CDT Office Visit [place] [facility] [id number] [place] [phone] Glenn Seaman MD [facility]. [place] [address] [place], [place] [phone] documented as of this encounter Visit Diagnoses Not on filedocumented in this encounter Care Teams Automatic Spooler Operator Relationship Specialty Start Date End Date Maria A Tavares PA-C PCP - General NURSE PRACTITIONER 04/16/16 Glenn Seaman MD [facility]. [facility] [address] [place], [place] [address] [place] Global Risk Management Director CARDIOVASCULAR DISEASE 04/16/16 documented as of this encounter
--- OUTSIDE RECORDS SUMMARY | 2025-07-05 07:56 | XMS_ITS | Encounter Summary ---
Author Organization [facility] Address [facility] [place] [address] Care Team Providers Care Drop Forger Name Role Phone Maria A Tavares PA-C Primary Care Provider +- [phone] Glenn Seaman MD Unavailable [phone] Encounter Details Date Type Department Care Team (Late st Contact Info) Description 09/01/2022 [employer] Message [facility] [address] [place] [phone] Glenn Seaman MD [address] [address] [place]Kg Social History Tobacco Use Types Packs/Day Years [...] suspected to have Coronavirus/COVID-19? No / Unsure 08/20/2022 8:10 AM CDT documented as of this encounter [...] Date Author Status No 05/11/2021 5:25 AM HAILEYT Iman Massey RN Active documented in this encounter Plan of Treatment Upcoming Encounters Date Type Department Care Team (Late st Contact Info) Description 08/14/2025 10:30 AM CDT Office Visit [place] [facility] [phone] [place] [phone] Glenn Seaman MD [facility]. [facility] [address] [place] [address] documented as of this encounter Visit Diagnoses Not on filedocumented in this encounter Care Teams Drop Forger Relationship Specialty Start Date End Date Maria A Tavares PA-C PCP - General NURSE PRACTITIONER 04/16/16 Glenn Seaman MD [facility]. [address] [address] Dimitry Groover And Turner CARDIOVASCULAR DISEASE 04/16/16 documented as of this encounter
--- OUTSIDE RECORDS SUMMARY | 2025-07-05 07:56 | XMS_ITS | Encounter Summary ---
Author Organization [facility] Address [facility] [place] [address] Care Team Providers Care Photocomposing Machine Operator Name Role Phone Maria A Tavares PA-C Primary Care Provider [phone]- [phone] Glenn Seaman MD Unavailable [phone] Encounter Details Date Type Department Care Team (Late st Contact Info) Description 01/24/2023 [employer] Message [facility] [address] [place] [phone] Glenn Seaman MD [address] [address] Kenneth Garcia Prescription for Metoprol 50mg & Simvastatin 80mg Social History Tobacco Use Types Packs/Day Years [...] suspected to have Coronavirus/COVID-19? Unable to assess 01/19/2023 2:28 PM PIE CUTTER documented as of this encounter Functional Status [...] Description 08/14/2025 10:30 AM CDT Office Visit [place] [facility] [address] [place] [phone] Glenn Seaman MD [facility]. [address] [address] documented as of this encounter Visit Diagnoses Not on filedocumented in this encounter Care Teams Photocomposing Machine Operator Relationship Specialty Start Date End Date Maria A Tavares PA-C PCP - General NURSE PRACTITIONER 04/16/16 Glenn Seaman MD Three [facility]. [address] [address] [place] Blending Supervisor CARDIOVASCULAR DISEASE 04/16/16 documented as of this encounter
--- OUTSIDE RECORDS SUMMARY | 2025-07-05 07:56 | XMS_ITS | Encounter Summary ---
Author Organization [facility] Address [address] [place] [address] Care Team Providers Care Vacuum Technician Name Role Phone Maria A Tavares PA-C Primary Care Provider [phone]- [phone] Glenn Seaman MD Unavailable [phone] Encounter Details Date Type Department Care Team (Late st Contact Info) Description 03/09/2023 Prep for Procedure [facility] [address] [place] [address] Agapito Urena MD [address] [place] [address] Social History Tobacco Use Types Packs/Day Years [...] suspected to have Coronavirus/COVID-19? No / Unsure 03/10/2023 11:38 AM CDT documented as of this encounter [...] Description 08/14/2025 10:30 AM CDT Office Visit [place] [facility] [address] [place] [phone] Glenn Seaman MD [facility]. 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1955 Requested By: AGAPITO URENA Order Number: [id number] Reading : Christian Johnson Measurements Intervals [place] Rate: 52 P: 14 WV: 181 QRS: -24 QRSD: 104 T: 57 QT: 434 QTc: 406 Interpretive Statements SINUS BRADYCARDIA WITH SINUS ARRHYTHMIA BORDERLINE LEFT AXIS DEVIATION [QRS AXIS < -20] Compared to ECG 01/27/2022 10:48:32 T-wave abnormality no longer present Procedure Note Christian Johnson MD - 03/10/2023 [facility] Test Date: 2023-03-10 Pat Name: ESTEBAN GARCIA Department: 85 Room: Gender: Male 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 Treatment 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: : 1955 Requested By: AGAPITO URENA Order Number: [id number] Shola FARIA: Christian Johnson Measurements Intervals [place] Rate: 52 P: 14 WV: 181 QRS: -24 QRSD: 104 T: 57 QT: 434 QTc: 406 Interpretive Statements SINUS BRADYCARDIA WITH SINUS ARRHYTHMIA BORDERLINE LEFT AXIS DEVIATION [QRS AXIS < -20] Compared to ECG 01/27/2022 10:48:32 T-wave abnormality no longer present us Agapito Urena MD ECG ORDERABLES Final Result Performing Organization Address City/State/[facility] Co de Phone Number [facility] documented in this encounter Visit Diagnoses Diagnosis Preop testing- Primary Preoperative examination, unspecified Preop testing Preoperative examination, unspecified documented in this encounter Care Teams Vacuum Technician Relationship Specialty Start Date End Date Maria A Tavares PA-C PCP - General NURSE PRACTITIONER 04/16/16 Glenn Seaman MD Three [facility]. [address] [address] Dimitry Advertising Agent CARDIOVASCULAR DISEASE 04/16/16 documented as of this encounter
--- OUTSIDE RECORDS SUMMARY | 2025-07-05 07:56 | XMS_ITS | Clinical Summary ---
Author Organization [facility] Address [facility] [place] [address] Care Team Providers Care Rug Dry Room Attendant Name Role Phone Maria A Tavares PA-C Primary Care Provider [phone]- [phone] Glenn Seaman MD Unavailable [phone] Allergies No known active allergies Medications multivitamin tablet Take 1 tablet by mouth daily. 10/08/2015 Active Cyanocobalamin (VITAMIN B-12 OR) Take 1 tablet by mouth daily. 10/08/2015 Active potassium chloride CR 8 MEQ tablet Take 1 tablet (8 mEq total) by mouth daily. Pt reports bottle says 99mg Active aspirin 81 MG chewable tablet Chew 1 tablet (81 mg total) by mouth daily. Active simvastatin (ZOCOR) 80 MG tablet TAKE 1 TABLET BY MOUTH AT BEDTIME 90 tablet 1 04/19/2024 Active metoprolol tartrate (LOPRESSOR) 50 MG tablet TAKE 1 TABLET BY MOUTH TWICE DAILY 180 tablet 1 04/19/2024 Active pantoprazole EC (PROTONIX) 40 MG tablet Take 1 tablet (40 mg total) by mouth daily. 12/07/2024 Active Active Problems Problem Noted Date Diagnosed Date Erosion of pyloric antrum, unspecified chronicit y 02/18/2023 Overview (02/18/2023): Added automatically from request for surgery [id number] Iron deficiency anemia due to chronic blood loss 07/10/2021 Overview (07/10/2021): Added automatically from request for surgery [id number] History of GI bleed 07/10/2021 Overview (07/10/2021): Added automatically from request for surgery [id number] GI bleed 05/11/2021 A-fib ([facility]) CAD (coronary artery disease) Dyslipidemia Hypertension, essential Occlusion and stenosis of unspecified carotid ar val[place] Immunizations Immunization Administration Dates Next Due Fluzone High Dose - >Age 65 (Prefilled Syringe) 08/22/2020 Influenza Adult (Generic) 07/23/2023 Family History Medical History Relation Comments No family history of premature coronary artery d isease. Cousin Other Father Relation Status Comments Cousin Other History of ABD. Aneurysym Father Other History of ABD. Aneurysum Social History Tobacco Use Types Packs/Day Years Used Date Smoking Tobacco: Former Smokeless Tobacco: Never Tobacco Cessation:Counseling Given: Not Answered Comments:quit 2009 Alcohol Use Standard Drinks/Week Comments [...] file Not on file Not on file Last Filed Vital Signs Vital Sign Reading Time Taken Comments Blood Pressure 120/70 01/19/2025 9:51 AM IRRIGATION LABORER Pulse 60 01/19/2025 9:51 AM IRRIGATION LABORER Temperature 35.9 C (96.7 F) 03/18/2023 9:03 AM CDT Respiratory Rate 16 03/18/2023 10:08 AM CDT Oxygen Saturation 100% 03/18/2023 10:30 AM CDT Inhaled Oxygen Concentration - - Weight 125.6 kg (277 lb) 01/19/2025 9:51 AM IRRIGATION LABORER Height 182.9 cm (6') 01/19/2025 9:51 AM IRRIGATION LABORER Body Mass Index 37.57 01/19/2025 9:51 AM IRRIGATION LABORER Plan of Treatment Upcoming Encounters Date Type Department Care Team (Late st Contact Info) Description 08/14/2025 10:30 AM CDT [facility] [place] [facility] [address] [place] [address] Glenn Seaman MD Three [facility]. [facility] [address] [place] [address] Health Maintenance Due Date Last Done Comments Meningococcal Vaccine (1 - Risk 2-dose series) 1956 Meningococcal B Vaccine (1 o f 5 - Increased Risk) 1964 Hepatitis C 1972 DTaP, Tdap and Td Vaccines ( 1 - Tdap) 1973 Pneumococcal Vaccine: 50+ Years (1 of 2 - PCV) 1973 Zoster Vaccines (1 of 2) 2004 RSV Immunization or 60+ Years (1 - Risk 60-74 years 1-dose series) 2014 COVID-19 Vaccine (2 - 2023-2 5 season) 2024 01/22/2021 PHQ-2 (Physician [place]) 11/16/2024 Colorectal Cancer Screening Colonoscopy (10 Years) 07/17/2031 07/17/2021 Colorectal Cancer Screening FIT/FOBT (1 Year) Discontinued 05/11/2021 EGD-Avila's Surveillance Discontinued 05/12/2021 AAA SCREENING Completed 02/16/2024, 10/31/2022 RSV Immunizations Under 20 Months Aged Out No longer eligible based on patient's age to complete this topic Procedures Procedure Name Priority Date/Time Associated Diagnosis Comments CT PEL WWO CON STAT 02/16/2024 1:43 PM CDT Right lower quadrant pain EGD Routine 05/12/2021 4:23 PM CDT OCCULT BLOOD, FECES STAT 05/11/2021 1 2:50 AM CDT from Last 3 Months or Most Recently Relevant to Health Maintenance Results * CT PEL WWO CON (02/16/2024 1:43 PM CDT) Anatomical Region Laterality Modality Pelvis Computed Tomogra phy 02/16/2024 2:08 PM CDT Impressions 02/16/2024 2:19 PM CDT IMPRESSION: 1. No evidence of pelvic mass or pathologic lymphadenopathy. Specifically no distinct abnormality in the right lower quadrant. 2. Small fat-containing bilateral inguinal hernias. No complicating features. No inguinal mass.. 3. Low volume urinary bladder may be due to mild cystitis versus decompressed state.. 4. Cecum and appendix are out of the plane of imaging. Degenerative change in lower lumbar spine. Ordered By: MARIA A TAVARES Interpreted By: Donald Biggs, 02/16/2024 2:08 PM Narrative 02/16/2024 2:19 PM CDT IMAGING STUDIES: CT PEL WWO CON DATE: 02/16/2024 1:17 PM CLINICAL HISTORY: Right lower quadrant pain for 5 weeks which is worsening.. ROUTINE CT OF THE PELVIS WITH AND WITHOUT CONTRAST. IV ADMINISTRATION OF 75 mL of Isovue-370. CC OF ISOVUE 370. COMPARISON: 06/21/2010.. Radiation dose reduction technique was utilized. FINDINGS: No evidence of pelvic mass or pathologic lymphadenopathy. No abnormal enhancement.. Small fat-containing bilateral inguinal hernias. Greater on the left side measuring up to 4 cm. No inguinal masses.. Overlying muscular planes are well-maintained. Low volume urinary bladder with borderline mucosal thickening. May be due to mild cystitis versus decompressed state.. Grossly normal sized prostate gland. Distal descending colonic diverticuli without diverticulitis. Moderate aortoiliac calcifications without distinct narrowing. The cecum and appendix are high riding and out of the plane of imaging on this pelvis only study.. . Moderate degenerative change in lower lumbar spine with moderate spinal stenosis at L4-5 and L3-4.. Mild degenerative change in both sacroiliac joints and both hips.. .. . Procedure Note Dominic Biggs MD - 02/16/2024 IMAGING STUDIES: CT PEL WWO CONDATE: 02/16/2024 1:17 PM CLINICAL HISTORY: Right lower quadrant pain for 5 weeks which isworsening.. ROUTINE CT OF THE PELVIS WITH AND WITHOUT CONTRAST. IV ADMINISTRATION OF75 mL of Isovue-370. CC OF ISOVUE 370. COMPARISON: 06/21/2010.. Radiationdose reduction technique was utilized. FINDINGS: No evidence of pelvic mass or pathologic lymphadenopathy. No abnormalenhancement.. Small fat-containing bilateral inguinal hernias. Greater on the left sidemeasuring up to 4 cm. No inguinal masses.. Overlying muscular planes are well-maintained. Low volume urinary bladderwith borderline mucosal thickening. May be due to mild cystitis versusdecompressed state.. Grossly normal sized prostate gland. Distal descending colonic diverticuliwithout diverticulitis. Moderate aortoiliac calcifications withoutdistinct narrowing. The cecum and appendix are high riding and out of the plane of imaging onthis pelvis only study.. . Moderate degenerative change in lower lumbar spine with moderate spinalstenosis at L4-5 and L3-4.. Mild degenerative change in both sacroiliacjoints and both hips.. .. . IMPRESSION: 1. No evidence of pelvic mass or pathologic lymphadenopathy. Specificallyno distinct abnormality in the right lower quadrant. 2. Small fat-containing bilateral inguinal hernias. No complicatingfeatures. No inguinal mass.. 3. Low volume urinary bladder may be due to mild cystitis versusdecompressed state.. 4. Cecum and appendix are out of the plane of imaging. Degenerativechange in lower lumbar spine. Ordered By: MARIA A TAVARES Interpreted By: Donald Biggs, 02/16/2024 2:08 PM us Maria A Tavares PA-C CT Final Resu lt * EGD (05/12/2021 4:23 PM CDT) Ritesh Hurley MD - 05/12/2021 4:23 PM CDT Ritesh Baires MD 05/12/2021 4:38 PM RITESH BAIRES MD, FACG, FACP UPPER ENDOSCOPY 05/12/2021 INDICATION: Acute blood loss anemia, hematemesis, melena and heme-positive stool on ASA. POST-OP: Ulcerative gastritis; gastric biopsies done. SEDATION: Per anesthesia With the patient in the left lateral decubitus position, the Olympus GIF 6OG001 upper endoscope was used to easily intubate the patient s esophagus and advanced to the third portion of the duodenum. Careful inspection of the mucosa was made upon insertion and withdrawal of the endoscope with retroflexion in the stomach. FINDINGS: Esophagus: SC Jx @ 45 cm. Esophagus is normal. No esophagitis, stricture, mass or Avila's. Stomach: Fundus, body and antrum with linear, non-bleeding gastric ulcers with exudate worst proximally. There is diffuse gastritis. Biopsies taken throughout the stomach to rule out H. pylori. No AVM or malignancy. Duodenum: Normal in the bulb, second and third portion. No complications, blood loss or implants. No old or new blood. Hct 19. LFT's normal. ASSESSMENT AND PLAN: A. Acute blood loss anemia with hematemesis, melena and heme-positive stool on ASA: - EGD 05-12-2021 with ulcerative gastritis - Follow H&H; s/p one unit PRBC today - No evidence of active GI bleeding at this time - IV PPI-> po BID - Add Carafate for one month - Repeat EGD 8-10 weeks - Care with aspirin, NSAIDS and anticoagulants B. Macrocytosis: - Likely due to alcohol - B12 and folate are normal C. History of colon polyps. Consider colonoscopy as outpatient by Dr. Urena when stable. D. Abnormal imaging, liver, likely hepatic steatosis due to alcohol. Ritesh Baires M.D. [phone] Cc: ISELA Schmidt; Dr. AD Urena Ritesh Baires MD GI PROCEDURE ORDERABLES Fin al Result * (ABNORMAL) OCCULT BLOOD, FECES (05/11/2021 12:50 AM CDT) OCCULT BLOOD FECAL POSITIVE(A ) NEGATIVE 05/11/2021 12:57 AM CDT [facility] STOOL SPECIMEN / Unknown 05/11/2021 12:50 AM CDT Thor De Paz MD BODY FLUIDS AND STOOLS [facility] JO Final Result [facility] [address] [place] [address], [place] [phone] from Last 3 Months or Most Recently Relevant to Health Maintenance Insurance Advance Directives * Full Code (Latest Code Status on File) Date Activated Date Inactivated Comments 12/31/2021 10:44 AM 12/31/2021 3:21 PM * Full Code Date Activated Date Inactivated Comments 05/11/2021 4:10 AM 05/19/2021 4:59 PM Care Teams Rug Dry Room Attendant Relationship Specialty Start Date End Date Maria A Tavares PA-C PCP - General NURSE PRACTITIONER 04/16/16 Glenn Seaman MD [facility]. [address] [address] [place] Front Desk Agent CARDIOVASCULAR DISEASE 04/16/16
== END 2025-07-05 07:49 | disposition home or self-care (01) ==
PROVIDERS: PCP Physician Assistant Medical; Visit Provider Otolaryngology
DX: Z01.818 Encounter for other preprocedural examination (principal); I10 Essential (primary) hypertension; I44.4 Left anterior fascicular block
CPT/HCPCS: 93005

== ENCOUNTER 2025-07-10 00:40 | Day surgery (SDC) | payer MEDICARE, SELFPAY ==
--- NOTE | 2025-06-29 13:56 | PC.NURSE ---
Report to the Outpatient Waiting Room, entrance under the green pavilion located off [facility], at time _1200_PM on date _07/10/25 . Planned Procedure Time: __2 PM .? Time changes happen often and if your time is changed the preop area will call you the afternoon before. - You and your visitor will be asked to self-screen and do not enter if you have any COVID symptoms. Please call surgeon if you need to reschedule. - A mask is optional within the hospital at this time. Patients may have clear liquids (water, carbonated beverages, clear teas, apple juice) until 3 hours prior to surgery (11 AM ) with a maximum of 20 ounces. - No food from midnight until time of surgery and no smoking, or chewing tobacco (or any form of nicotine). No chewing gum, candy or mints. - Take only the following medications with a SIP of water on the morning of surgery: METOPROLOL DO NOT STOP ANY OF YOUR OTHER PRESCRIPTION MEDICATIONS PRIOR TO SURGERY EXCEPT THE FOLLOWING Hold all vitamins and supplements for 3 days per anesthesiologist.LAST DOSE 07/06/25 Medications to discontinue per physician __ASPIRIN PER Please no make-up, nail telugu, hairspray, perfume, deodorant, or body powder the day of surgery.? No jewelry (including any body piercings) or valuables the day of surgery, leave them at home.? Please take a shower or bath the night before, or the morning of, surgery with an antibacterial soap.? Wear comfortable, loose fitting clothing.? Children are encouraged to wear pajamas. - Jewelry must be removed prior to entering the operating room.? Rings and piercings that are not removed may be cut off. - The hospital will not accept responsibility for valuables.? - Please leave all valuables, including medications, at home the day of surgery. If you are going home after surgery, a licensed train driver must drive you home.? - NO public transportation without another adult if you receive anesthesia. - We recommend that an adult stay with you for 24 hours following discharge. - We also recommend that you do not drive, make important decision, drink alcoholic beverages, or take any drugs that were not prescribed by your health care provider for at least 24 hours after your discharge time. For Pediatric surgeries, we recommend two adults accompany the child home. Follow any additional instructions given to you from your surgeon. Telephone instructions given to __PATIENT and asked if any additional questions and then verbalized understanding. Patient advised to call surgeon office or pre surgery nurse liaison [phone] if any additional questions.
[2025-06-29 14:15] VITALS: BMI 35.9
[2025-07-10] VITALS (8 sets, daily range): BP systolic 150–177; BP diastolic 66–89; PULSE 48–66; RESP 18; TEMP 36.3; O2SAT 95–100
--- OUTSIDE RECORDS SUMMARY | 2025-07-10 00:42 | XMS_ITS | Encounter Summary ---
Author Organization [facility] Address [facility] [place] [address] Care Team Providers Care Wiring Technician Name Role Phone Maria A Tavares PA-C Primary Care Provider +- [phone] Glenn Seaman MD Unavailable [phone] Encounter Details Date Type Department Care Team (Late st Contact Info) Description 09/01/2022 Psykos[employer] Message [facility] [address] [place] [phone] Glenn Seaman MD [address] [address] [place] Social History Tobacco Use Types Packs/Day [...] Description 08/14/2025 10:30 AM CDT Office Visit [place] [facility] [phone] [place] [phone] Glenn Seaman MD [facility]. [facility] [address] [place] [address] documented as of this encounter Visit Diagnoses Not on filedocumented in this encounter Care Teams Wiring Technician Relationship Specialty Start Date End Date Maria A Tavares PA-C PCP - General NURSE PRACTITIONER 04/16/16 Glenn Seaman MD [facility]. [address] [address] Dimit[place] Gynecology Teacher CARDIOVASCULAR DISEASE 04/16/16 documented as of this encounter
--- OUTSIDE RECORDS SUMMARY | 2025-07-10 00:42 | XMS_ITS | Encounter Summary ---
Author Organization [facility] Address [facility] [place] [address] Care Team Providers Care Dock Manager Name Role Phone Maria A Tavares PA-C Primary Care Provider [phone]- [phone] Glenn Seaman MD Unavailable [phone] Encounter Details Date Type Department Care Team (Late st Contact Info) Description 01/24/2023 [employer] Message [facility] [address] [place] [phone] Glenn Seaman MD [address] [address] Kenneth Garcia Prescription for Metoprol [...] Coronavirus/COVID-19? Unable to assess 01/19/2023 2:28 PM STOREKEEPER STEWARD documented as of this encounter Functional Status [...] Description 08/14/2025 10:30 AM CDT Office Visit [place] [facility] [address] [place] [phone] Glenn Seaman MD [facility]. [address] [address] documented as of this encounter Visit Diagnoses Not on filedocumented in this encounter Care Teams Dock Manager Relationship Specialty Start Date End Date Maria A Tavares PA-C PCP - General NURSE PRACTITIONER 04/16/16 Glenn Seaman MD Three [facility]. [address] [address] [employer] CARDIOVASCULAR DISEASE 04/16/16 documented as of this encounter
--- OUTSIDE RECORDS SUMMARY | 2025-07-10 00:42 | XMS_ITS | Clinical Summary ---
Author Organization [facility] Address [facility] [place] [address] Care Team Providers Care Federal Mediation Commissioner Name Role Phone Maria A Tavares PA-C Primary Care Provider [phone]- [phone] Glenn Seaman MD Unavailable [phone] Allergies No known active allergies Medications multivitamin [...] (02/18/2023): Added automatically from request for surgery [id number] Iron deficiency anemia due to chronic blood loss 07/10/2021 Overview (07/10/2021): Added automatically from request for surgery [id number] History of GI bleed 07/10/2021 Overview (07/10/2021): Added automatically from request for surgery [id number] GI bleed 05/11/2021 A-fib ([facility]/H[facility]) CAD (coronary artery disease) Dyslipidemia Hypertension, essential [...] Comments Blood Pressure 120/70 01/19/2025 9:51 AM CIVIL ENGINEERING PROFESSOR Pulse 60 01/19/2025 9:51 AM CIVIL ENGINEERING PROFESSOR Temperature 35.9 C (96.7 F) 03/18/2023 9:03 AM CDT Respiratory Rate 16 03/18/2023 10:08 AM CDT Oxygen Saturation 100% 03/18/2023 10:30 AM CDT Inhaled Oxygen Concentration - - Weight 125.6 kg (277 lb) 01/19/2025 9:51 AM CIVIL ENGINEERING PROFESSOR Height 182.9 cm (6') 01/19/2025 9:51 AM CIVIL ENGINEERING PROFESSOR Body Mass Index 37.57 01/19/2025 9:51 AM CIVIL ENGINEERING PROFESSOR Plan of Treatment Upcoming Encounters Date Type Department Care Team (Late st Contact Info) Description 08/14/2025 10:30 AM CDT [facility] [address] [place] [address] Glenn Seaman MD Three [facility]. [facility] [address] [place] [address] Health Maintenance Due Date Last Done Comments [...] 2023-2 5 season) 2024 01/22/2021 PHQ-2 (Physician [place]) 11/16/2024 Colorectal Cancer Screening Colonoscopy (10 Years) [...] left lateral decubitus position, the Olympus GIF [id number] upper endoscope was used to easily intubate [...] steatosis due to alcohol. Ritesh Baires M.D. [phone] Cc: ISELA Schmidt; Dr. AD Urena Ritesh Baires MD GI PROCEDURE ORDERABLES Fin al Result * (ABNORMAL) OCCULT BLOOD, FECES (05/11/2021 12:50 AM CDT) OCCULT BLOOD FECAL POSITIVE(A ) NEGATIVE 05/11/2021 12:57 AM CDT [facility] STOOL SPECIMEN / Unknown 05/11/2021 12:50 AM CDT Thor De Paz MD BODY FLUIDS AND STOOLS SINAI JO Final Result [facility] [address] [place] [address], [place] [phone] from Last 3 Months or Most Recently Relevant to Health Maintenance Insurance Advance Directives * Full Code (Latest Code Status on File) Date Activated Date Inactivated Comments 12/31/2021 10:44 AM 12/31/2021 3:21 PM * Full Code Date Activated Date Inactivated Comments 05/11/2021 4:10 AM 05/19/2021 4:59 PM Care Teams Federal Mediation Commissioner Relationship Specialty Start Date End Date Maria A Tavares PA-C PCP - General NURSE PRACTITIONER 04/16/16 Glenn Seaman MD [facility]. [address] [address] [employer] Design Engineer CARDIOVASCULAR DISEASE 04/16/16
--- OUTSIDE RECORDS SUMMARY | 2025-07-10 00:42 | XMS_ITS | Encounter Summary ---
Author Organization [facility] Address [address] [place] [address] Care Team Providers Care Nurse Practitioner Hospitalist Name Role Phone Maria A Tavares PA-C Primary Care Provider [phone] Glenn Seaman MD Unavailable [phone] Encounter Details Date Type Department Care Team (Late st Contact Info) Description 03/09/2023 Prep for Procedure [facility] [address] [place] [address] Agapito Urena MD [address] [place] [address] Social History Tobacco Use Types Packs/Day [...] Description 08/14/2025 10:30 AM CDT Office Visit [facility] [address] [place] [phone] Glenn Seaman MD [facility]. [address] [address] documented as of this encounter Results * ECG 12-Lead (03/10/2023 11:52 AM CDT) 03/10/2023 11:5 2 AM CDT Narrative [facility] ([facility]) RAD - 03/10/2023 12:[address] [facility] Test Date: 2023-03-10 Pat Name: ESTEBAN GARCIA Department: 85 Room: Gender: Male Trip Rider: : 1955 Requested By: AGAPITO URENA Order Number: [id number] Reading : Christian Johnson Measurements Intervals [place] Rate: 52 P: 14 KS: 181 QRS: -24 QRSD: 104 T: 57 QT: 434 QTc: 406 Interpretive Statements SINUS BRADYCARDIA WITH SINUS ARRHYTHMIA BORDERLINE LEFT AXIS DEVIATION [QRS AXIS < -20] Compared to ECG 01/27/2022 10:48:32 T-wave abnormality no longer present Procedure Note Christian Johnson [facility]: 2023-03-10 Pat Name: ESTEBAN GARCIA Department: 85 Room: Gender: Male Trip Rider: : 1955 Requested By: AGAPITO URENA Order Number: [id number] Shola FARIA: Christian Johnson Measurements Intervals [place] Rate: 52 P: 14 KS: 181 QRS: -24 QRSD: 104 T: 57 QT: 434 QTc: 406 Interpretive Statements SINUS BRADYCARDIA WITH SINUS ARRHYTHMIA BORDERLINE LEFT AXIS DEVIATION [QRS AXIS < -20] Compared to ECG 01/27/2022 10:48:32 T-wave abnormality no longer present us Agapito Urena MD ECG ORDERABLES Final Result Performing Organization Address City/State/[facility] Co de Phone Number [facility] ([facility]) [facility] documented in this encounter Visit Diagnoses Diagnosis Preop testing- Primary Preoperative examination, unspecified Preop testing Preoperative examination, unspecified documented in this encounter Care Teams Nurse Practitioner Hospitalist Relationship Specialty Start Date End Date Maria A Tavares PA-C PCP - General NURSE PRACTITIONER 04/16/16 Glenn Seaman MD Three [facility]. [address] [address] [place] Associate Brand Manager CARDIOVASCULAR DISEASE 04/16/16 documented as of this encounter
--- OUTSIDE RECORDS SUMMARY | 2025-07-10 00:42 | XMS_ITS | Encounter Summary ---
Author Organization [facility] Address [address] [place] [address] Care Team Providers Care Steel Die Press Set Up Operator Name Role Phone Maria A Tavares PA-C Primary Care Provider [phone]- [phone] Glenn Seaman MD Unavailable [phone] Encounter Details Date Type Department Care Team (Latest Contact Info) Description 03/16/2023 [place] Message [facility] [place] [facility] Provider Disputed Review Completed Social History Tobacco [...] Description 08/14/2025 10:30 AM CDT Office Visit [facility] [id number] [place] [phone] Glenn Seaman MD [facility]. [facility] [address] [place] [address] documented as of this encounter Visit Diagnoses Not on filedocumented in this encounter Care Teams Steel Die Press Set Up Operator Relationship Specialty Start Date End Date Maria A Tavares PA-C PCP - General NURSE PRACTITIONER 04/16/16 Glenn Seaman MD [facility]. [facility] [address] [place] [address] [place] Corporate Development Associate CARDIOVASCULAR DISEASE 04/16/16 documented as of this encounter
--- OUTSIDE RECORDS SUMMARY | 2025-07-10 00:42 | XMS_ITS | Encounter Summary ---
Author Organization [facility] Address [facility] [place] [address] Care Team Providers Care Frozen Pie Maker Name Role Phone Maria A Tavares PA-C Primary Care Provider [phone] Glenn Seaman MD Unavailable [phone] Encounter Details Date Type Department Care Team (Late st Contact Info) Description 11/04/2022 i'mma Message Enc [facility], [address] [address] [place], [facility] Provider CT of chest Social History Tobacco [...] Coronavirus/COVID-19? 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 [place] [address] [place], [place] [address] documented as of this encounter Visit Diagnoses Not on filedocumented in this encounter Care Teams Frozen Pie Maker Relationship Specialty Start Date End Date Maria A Tavares PA-C PCP - General NURSE PRACTITIONER 04/16/16 Glenn Seaman MD [facility]. [facility] [address] [place], [place] [address] [place] Orthopedic Designer CARDIOVASCULAR DISEASE 04/16/16 documented as of this encounter
--- NOTE | 2025-07-10 11:52 | WPDHPUPDATE1 ---
History and Physical Update Update Date/Time: 07/10/25 11:52 History and Physical has been reviewed, including an updated exam of the patient. There are NO changes in the patient's condition. Risks, benefits, and alternatives have been discussed and questions answered. Patient agrees to proceed with procedure. Procedure will be microdirect vs endoscope direct laryngoscopy with vocal cord biopsy
--- NOTE | 2025-07-10 13:27 | WPDANESEPPF ---
Anes - Initial Pre Proc Eval Procedure: Operation Date: 07/10/25 14:00 Proposed Procedures p Microdirect Laryngoscopy with Bilateral Vocal Cord Biopsy - Taurus Shine MD Date/Time: 07/10/25 13:27 Surgeon: Taurus Shine MD Pre Op Diagnosis: dysphonia, chronic fungal laryngitis, GERD Patient Data Age: 69 Gender: M Height: 1.83 m Weight: 119.7 kg Last Vital Signs Temp 36.3 C L 07/10/25 12:05 Pulse 54 L 07/10/25 12:05 Resp 18 07/10/25 12:05 BP 163/76 H 07/10/25 12:05 Pulse Ox 100 07/10/25 12:05 O2 Del Method Room Air 07/10/25 12:05 Allergies Allergy/AdvReac Type Severity Reaction Status Date / Time No Known Allergies Allergy Mild Verified 07/10/25 12:33 Home Medications ?Medication ?Instructions ?Recorded ?Confirmed ?Type aspirin 81 mg capsule 81 mg PO DAILY 08/04/22 07/10/25 History multivitamin 1 tablet PO DAILY 08/05/22 07/10/25 History potassium citrate 90 mg PO DAILY 08/21/22 07/10/25 History metoprolol tartrate 50 mg tablet 50 mg PO BID #180 tabs 02/07/25 07/10/25 Rx simvastatin 80 mg tablet 80 mg PO HS #90 tabs 02/07/25 07/10/25 Rx pantoprazole 40 mg tablet,delayed 40 mg PO QAM #90 tabs 04/24/25 07/10/25 Rx release fluconazole 200 mg tablet 200 mg PO DAILY #20 tabs 06/28/25 07/10/25 Rx Patient hx anesthesia problems: none Family hx anesthesia problems: none Results Review: All pre-operative results and documents have been reviewed as part of the pre-operative evaluation. [facility] Past Medical History Medical History Dyslipidemia GERD (gastroesophageal reflux disease) Bilateral inguinal hernia repaired Umbilical hernia without obstruction or gangrene repaired CAD (coronary artery disease) History of ulcer disease Hypertension Hyperlipidemia Atrial fibrillation resolved with cardioversion Surgical History Surgical History Hx of hernia repair 02/29/24: Open bilateral inguinal hernia repairs with Ultrapro hernia system mesh. Open umbilical hernia repair without mesh. Dr. 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 S/P total knee arthroplasty Rt TKA 09/03/22 Hx of CABG x3, 2010 Family History Family History Other Heart disease No family history of disorders Social History Social History Social History: 06/01/25 patient declined SDOH CAFFEINE-OCCASIONALLY Smoking packs per day: 1 Smoking cigarettes per day: 20.0 Years smoked: 30 Smoking pack-years: 30.00 Smoking status: Former smoker Tobacco type: cigarettes Second hand tobacco smoke exposure: No Smoking end date: 11/16/04 Additional smoking assessment comments: QUIT 2010 - PT DENIES ALL FORMS OF TOBACCO USE Alcohol intake: current Drinks per week: 10 Substance use: former Substance use type: marijuana Other substance usage details: QUIT AGE 34 Do You Feel Safe in your Home?: Yes Lack of Transportation: No Lack of Food: Never True Current Housing: I Have Housing Concerned About Future Housing: No Difficulty Paying Gas/Electric Bills: No Difficulty Paying for Meds: No Currently Unemployed: Decline to Answer Education: High School Diploma/GED Difficulty w/ Childcare or Family Care: Decline to Answer Living arrangements: with family Occupation/Education: retired Gender identity (if verbalized by the patient): Male Spiritual care concerns: No Anes - Eval Final PreProcedure Day of Procedure 07/10/25 13:27 Patient weight: obese Heart: regular rate and rhythm Lungs: clear to auscultation Airway: Mallampati scale class II Neurological: alert and oriented Last oral intake: >/= 8 hours ASA classification: III Emergent: no Anesthetic plan: proceed Anesthesia type and monitoring: general ETT and standard monitoring Results Review: All pre-operative results and documents have been reviewed as part of the pre-operative evaluation. Informed Consent: The patient's anesthetic plan and its attendant risks and benefits were discussed with the patient/family/POA. Questions were solicited and answers provided to the satisfaction of the patient/family/POA.
[2025-07-10] MEDS: OXYMETAZOLINE HCL 0.05% NAS 15 ML BTL (*BKC) 1 SPRAY NASAL (13:55)
--- NOTE | 2025-07-10 14:00 | S_PTH ---
PATIENT: Irving Garcia LOC: [facility] U#:[id number] AGE/SX: 69/M ROOM: RE07/10/[address]: Taurus Shine MD : 1955 BED: DIS: 07/10/2025 SPEC #: [id number] RECD: 07/10/25 14:12 STATUS: CYNTHIA RESiria #: [id number] SMILEY: 07/10/25 14:[address]: Taurus Shine DEPT: [facility] Surgical RECD BY: Corry Quiroz ENTERED: 07/10/25 14:12 SP TYPE: Surgical OTHR DR: Maria A Tavares PA-C Tissues: A - Vocal Cord Biopsy B - Vocal Cord Biopsy Procedures: Grocotts Methenamine Stain Hematoxylin and Eosin Stain Gross and Microscopic Level 4 P16
[2025-07-10] MEDS: LACTATED RINGERS 1,000 ML 30 ML IV CONT (14:10)
--- NOTE | 2025-07-10 14:35 | P.OP_ITS ---
Procedure Note - Detailed Date of Procedure 07/10/25 Pre-op Diagnosis dysphonia, chronic fungal laryngitis, GERD Post-op Diagnosis Same Procedure Performed direct laryngoscopy with laryngeal biopsy Surgeon Taurus Shine MD Anesthesia General Indications Patient likely has fungal laryngitis or squamous cell carcinoma there was white debris bilaterally what is interesting is the debris peeled off the cords were usually it is invasive cancer I am unsure at this point the diagnosis is, minimal bleeding Findings See above Description of Procedure Patient identified consent verified the preoperative holding area. Patient brought operating. Time-out performed. General anesthesia induced endotracheal tube secured. Patient prepped draped position procedure confirmed 2nd time-out performed. Moist Ray-Sterling placed over the edentulous upper gingiva. A Dedo laryngoscope anterior glottis brought into view white debris bilaterally this was biopsied x2 separate sample sent. Minimal bleeding. What is interesting is the debris peeled off the cords. So effectively 99% of the debris was removed. Great care was taken to not biopsy the anterior, it commissure on both spots. Or on contralateral spots. Bleeding was easily controlled application of Afrin- soaked pledgets. At the end of the procedure all the blood was suctioned out no active bleeding. Patient tolerated procedure well no complications. Moist Ray- [place] and a Dedo laryngoscope removed from the airway. Pictures taken. Patient tolerated the procedure well bleeding 1 cc. Estimated Blood Loss 1 Drains No Packing No Pathology Yes Complications No immediate complications Condition Stable Disposition PACU [facility] Billing Surgery - Charge Forward: Surgery Billing
== END 2025-07-10 15:55 | disposition home or self-care (01) ==
PROVIDERS: PCP Physician Assistant Medical; Visit Provider Otolaryngology
PROC: 0CJS8ZZ Inspection of Larynx, Via Natural or Artificial Opening Endoscopic (ICD-10-PCS; CPT 31535; principal; 2025-07-10 14:00)
DX: J37.0 Chronic laryngitis (principal); A42.9 Actinomycosis, unspecified; J38.7 Other diseases of larynx; R23.4 Changes in skin texture; E78.5 Hyperlipidemia, unspecified; K21.9 Gastro-esophageal reflux disease without esophagitis; I25.10 Atherosclerotic heart disease of native coronary artery without angina pectoris; I10 Essential (primary) hypertension; I48.91 Unspecified atrial fibrillation; E66.9 Obesity, unspecified; Z68.35 Body mass index [BMI] 35.0-35.9, adult; Z79.82 Long term (current) use of aspirin; Z98.890 Other specified postprocedural states; Z95.1 Presence of aortocoronary bypass graft; Z87.891 Personal history of nicotine dependence; Z87.11 Personal history of peptic ulcer disease; Z82.49 Family history of ischemic heart disease and other diseases of the circulatory system
CPT/HCPCS: 31535; 88305; 88312; 88342; A9270; J0330; J2405; J2704; J3010; J7120